=== PATIENT | female | born 1980 | race Caucasian/White ===

== ENCOUNTER → 2019-05-16 | Outpatient (CLI) | payer SELFPAY ==
[~2019-05-16] MED LIST: CLARITIN
--- NOTE | 2019-05-16 13:15 | Diagnostic Imaging Report ---
PROCEDURE: US Non-ob pelvis comp/trans. TECHNIQUE: Multiple realtime grayscale images were obtained of the pelvis in various projections endovaginally. Transabdominal imaging was also performed. INDICATION: Pelvic pain. FINDINGS: The uterus measures 7.5 x 5.9 x 4.9 cm. There is moderate fluid and debris within the endometrial canal measuring approximately 6 mm in thickness. No myometrial mass is seen. Right ovary measures 3.8 x 2.2 x 1.7 cm. Right ovary does contain follicles and demonstrate normal blood flow. No mass is seen. Left ovary was not visualized due to increased bowel gas. There is a cervical nabothian cyst measuring 6 mm IMPRESSION: 1. Moderate fluid and debris within the endometrial canal. 2. Nonvisualized left ovary. No other significant abnormality is seen. Dictated by: Dictated on workstation # [id number]
== END ==
LOC: RAD 11:17
PROVIDERS: ATTEND Nurse Practitioner Primary Care
DX: R10.2 Pelvic and perineal pain (principal)
CPT/HCPCS: 76830; 76856